=== PATIENT | male | born 1980 | race Caucasian/White ===

== ENCOUNTER 2021-12-07 03:40 | Inpatient (IN) | payer OTHER, SELFPAY ==
[2021-12-07 04:19] LABS: #Basophils 0.1 thou/uL (0.0-0.2); #Eosinphils 0.1 thou/uL (0.0-0.7); #Lymphocytes 1.3 thou/uL (1.20-3.40); #Monocytes 0.6 thou/uL (0.11-0.59); #Neutrophils 3.6 thou/uL (1.40-6.50); %Basophils 1.1 % (0.0-1.0); %Eosinophils 1.7 % (0.0-10.0); %Lymphocytes 23.1 % (21.0-51.0); %Monocytes 9.8 % (0.0-10.0); %Neutrophils 64.4 % (42.0-75.0); Hemoglobin 15.1 g/dL (14.0-18.0); Mean Corpuscular HGB CONC 35.4 g/dL (32.0-36.0); Mean Corpuscular Hemoglobin 34.8 pg (27.0-31.0); Mean Corpuscular Volume 98.4 fL (78.0-98.0); Mean Platelet Volume 6.4 fL (7.4-10.4); Platelet Count 219 thou/uL (130-400); RBC Distribution Width 11.3 % (11.5-14.5); Red Blood Cell (RBC) Count 4.33 mill/uL (4.70-6.10); White Blood Cell (WBC) Count 5.6 thou/uL (4.8-10.8)
[2021-12-07 04:29] LABS: Prothrombin Time 13.5 sec (12.0-14.7)
[2021-12-07 04:30] LABS: PTT 28.9 sec (22.9-36.1)
[2021-12-07 04:40] LABS: ALT (SGPT) 51 U/L (8-55); AST (SGOT) 38 U/L (5-34); Albumin 4.2 g/dL (3.5-5.0); Alkaline Phosphatase 52 U/L (40-110); Anion Gap 15 mmol/L (10-20); BUN (Urea Nitrogen) 11 mg/dL (8.9-20.6); Bilirubin, Total 0.7 mg/dL (0.2-1.2); CK (CPK) 90 U/L (30-200); Calc. Creatinine Clearance 0 mL/min (70-130); Carbon Dioxide 23 mmol/L (22-29); Chloride 102 mmol/L (98-107); Estimated GFR 91; Globulin 2.9 g/dL (2.4-3.5); Glucose 129 mg/dL (70-105); Potassium 3.8 mmol/L (3.5-5.1); Protein, Total 7.1 g/dL (6.0-8.3); Sodium 136 mmol/L (136-145)
[2021-12-07] MEDS ORDERED: Aspirin 325 MG TAB ONE (04:59)
[2021-12-07] MEDS ORDERED: hydrALAZINE 20 MG/ML VIAL SLOW IVP PRN ×2 (05:48→11:28)
[2021-12-07] MEDS: Nicotine 21 MG PATCH TD SCH (06:33)
[2021-12-07 06:59] LABS: Hemoglobin A1c 5.5 % (4.0-6.0)
[2021-12-07 07:04] LABS: Cardiac Risk 4.8 (Less than 4.5)
[2021-12-07] MEDS ORDERED: hydrALAZINE 20 MG/ML VIAL ONE (08:08)
[2021-12-07] MEDS ORDERED: Aspirin 81 mg Enteric Coated Tablet PO SCH (09:00)
[2021-12-07] MEDS ORDERED: niCARdipine 25 MG/10 ML VIAL ONE (09:52)
[2021-12-07 10:18] LABS: ALT (SGPT) 52 U/L (8-55); AST (SGOT) 35 U/L (5-34); Albumin 4.4 g/dL (3.5-5.0); Alkaline Phosphatase 53 U/L (40-110); Anion Gap 17 mmol/L (10-20); BUN (Urea Nitrogen) 10 mg/dL (8.9-20.6); Bilirubin, Total 0.8 mg/dL (0.2-1.2); Calc. Creatinine Clearance 0 mL/min (70-130); Calcium 9.4 mg/dL (7.8-10.44); Carbon Dioxide 24 mmol/L (22-29); Chloride 100 mmol/L (98-107); Estimated GFR 79; Globulin 3.3 g/dL (2.4-3.5); Glucose 123 mg/dL (70-105); Potassium 3.7 mmol/L (3.5-5.1); Protein, Total 7.7 g/dL (6.0-8.3); Sodium 137 mmol/L (136-145)
[2021-12-07] MEDS ORDERED: Tenecteplase 50 MG - STEMI KIT ONE (10:30)
[2021-12-07] MEDS ORDERED: niCARdipine 25 MG in Sodium Chloride 0.9% 250 ML 250 ML IVPB SCH (11:00)
[2021-12-07] MEDS ORDERED: Labetalol HCl 100 MG/20 ML VIAL SLOW IVP PRN (11:28)
[2021-12-07] MEDS ORDERED: Communication Order-Pharmacy FS ONE (11:28)
[2021-12-07] MEDS ORDERED: Ondansetron PF 4 MG/2 ML Vial IVP PRN (12:05)
[2021-12-07] MEDS ORDERED: Acetaminophen 325 MG TAB PO PRN (12:05)
[2021-12-07 12:55] VITALS: BMI 29.5
[2021-12-07] MEDS ORDERED: Iopamidol-370 76% 500 ML 1 ML ONE (13:27)
[2021-12-07 13:32] LABS: SARS-CoV-2 NAA Rapid Test Not Detected (NotDetected)
[2021-12-07] MEDS: niCARdipine 25 MG in Sodium Chloride 0.9% 250 ML 250 ML IVPB PRN ×2 (14:03→20:39)
[2021-12-07] MEDS ORDERED: Lorazepam 1 MG TAB PO PRN (14:15)
[2021-12-07] MEDS ORDERED: Electrolyte Replacement Protocol 1 EACH FS SCH (14:15)
[2021-12-07] MEDS ORDERED: Ondansetron ODT 4 MG TAB PO PRN (14:15)
[2021-12-07] MEDS ORDERED: Lorazepam (BATCHED) 2 MG/ML SYR IM PRN (15:11)
[2021-12-07] MEDS: Lorazepam 1 MG TAB PO SCH ×2 (15:25→20:37)
[2021-12-07] MEDS: Thiamine HCl 200 MG/2 ML VIAL SLOW IVP SCH (15:26)
[2021-12-07] MEDS ORDERED: Prevnar 13-Val Conj/PF 0.5 ML SYRINGE IM ONE (15:30)
[2021-12-07 17:21] LABS: Amphetamine Not Detected (NotDetected); Barbiturates Screen Not Detected (NotDetected); Benzodiazepine Screen Not Detected (NotDetected); Cocaine Metabolite Screen Not Detected (NotDetected); Methadone Not Detected (NotDetected); Methamphetamine Not Detected (NotDetected); Opiate Screen Not Detected (NotDetected); Oxycodone Screen Not Detected (NotDetected); Phencyclidine (PCP) Not Detected (NotDetected); THC/Cannabinoid Screen Not Detected (NotDetected); Tricyclic Screen Not Detected (NotDetected)
[2021-12-07] MEDS: Atorvastatin Calcium 40 MG TAB PO SCH (20:37)
[2021-12-08] MEDS: Lorazepam 1 MG TAB PO SCH ×4 (02:12→20:03)
[2021-12-08] MEDS: Nicotine 21 MG PATCH TD SCH (05:04)
[2021-12-08] MEDS: Folic Acid 1 MG TAB PO SCH (08:06)
[2021-12-08] MEDS: Multivit, Therapeutic 1 TAB PO SCH (08:06)
[2021-12-08] MEDS ORDERED: Aspirin 81 mg Enteric Coated Tablet PO SCH (11:00)
[2021-12-08] MEDS ORDERED: Losartan 25 MG TAB PO SCH (11:00)
[2021-12-08 11:15] LABS: #Basophils 0.1 thou/uL (0.0-0.2); #Eosinphils 0.1 thou/uL (0.0-0.7); #Monocytes 0.5 thou/uL (0.11-0.59); #Neutrophils 4.8 thou/uL (1.40-6.50); %Basophils 0.8 % (0.0-1.0); %Eosinophils 1.2 % (0.0-10.0); %Lymphocytes 15.7 % (21.0-51.0); %Neutrophils 74.3 % (42.0-75.0); Hemoglobin 15.6 g/dL (14.0-18.0); Mean Corpuscular HGB CONC 33.9 g/dL (32.0-36.0); Mean Corpuscular Hemoglobin 33.3 pg (27.0-31.0); Mean Corpuscular Volume 98.1 fL (78.0-98.0); Mean Platelet Volume 6.6 fL (7.4-10.4); Platelet Count 265 thou/uL (130-400); RBC Distribution Width 11.2 % (11.5-14.5); Red Blood Cell (RBC) Count 4.69 mill/uL (4.70-6.10); White Blood Cell (WBC) Count 6.4 thou/uL (4.8-10.8)
[2021-12-08 11:35] LABS: ALT (SGPT) 47 U/L (8-55); AST (SGOT) 31 U/L (5-34); Albumin 4.5 g/dL (3.5-5.0); Alkaline Phosphatase 53 U/L (40-110); Anion Gap 15 mmol/L (10-20); BUN (Urea Nitrogen) 9 mg/dL (8.9-20.6); Bilirubin, Total 1.1 mg/dL (0.2-1.2); Calc. Creatinine Clearance 129 mL/min (70-130); Calcium 9.8 mg/dL (7.8-10.44); Carbon Dioxide 24 mmol/L (22-29); Chloride 103 mmol/L (98-107); Estimated GFR 85; Globulin 3.3 g/dL (2.4-3.5); Glucose 117 mg/dL (70-105); Potassium 3.9 mmol/L (3.5-5.1); Protein, Total 7.8 g/dL (6.0-8.3); Sodium 138 mmol/L (136-145)
[2021-12-08] MEDS ORDERED: Lorazepam 1 MG TAB PO PRN (14:15)
[2021-12-08] MEDS: Thiamine HCl 200 MG/2 ML VIAL SLOW IVP SCH (16:16)
[2021-12-08] MEDS: Labetalol HCl 100 MG/20 ML VIAL SLOW IVP PRN ×2 (19:35→19:55)
[2021-12-08] MEDS: Atorvastatin Calcium 40 MG TAB PO SCH (20:03)
[2021-12-08] MEDS: niCARdipine 25 MG in Sodium Chloride 0.9% 250 ML 250 ML IVPB PRN (20:15)
[2021-12-09] MEDS: Lorazepam 1 MG TAB PO SCH ×3 (03:10→13:29)
[2021-12-09] MEDS: Nicotine 21 MG PATCH TD SCH (05:05)
[2021-12-09] MEDS: Aspirin 81 mg Enteric Coated Tablet PO SCH (08:39)
[2021-12-09] MEDS: Losartan 25 MG TAB PO SCH (08:39)
[2021-12-09] MEDS: Folic Acid 1 MG TAB PO SCH (08:39)
[2021-12-09] MEDS: Multivit, Therapeutic 1 TAB PO SCH (08:39)
[2021-12-09] MEDS: Labetalol HCl 100 MG/20 ML VIAL SLOW IVP PRN (09:23)
[2021-12-09] MEDS ORDERED: NIFEdipine XL 60 MG TAB PO SCH (10:00)
[2021-12-09] MEDS: hydrALAZINE 20 MG/ML VIAL SLOW IVP PRN (10:50)
[2021-12-09] MEDS: hydrALAZINE 25 MG TAB PO SCH ×2 (13:30→21:00)
[2021-12-09] MEDS: Lorazepam 0.5 MG TAB PO SCH ×2 (13:30→19:50)
[2021-12-09] MEDS ORDERED: Lorazepam 1 MG TAB PO PRN (14:15)
[2021-12-09] MEDS ORDERED: hydrALAZINE 25 MG TAB PO SCH (15:00)
[2021-12-09] MEDS: Thiamine HCl 200 MG/2 ML VIAL SLOW IVP SCH (15:47)
[2021-12-09] MEDS: Acetaminophen 325 MG TAB PO PRN (19:50)
[2021-12-09] MEDS: Atorvastatin Calcium 40 MG TAB PO SCH (21:01)
[2021-12-10] MEDS ORDERED: Melatonin 3 MG TAB PO PRN (00:44)
[2021-12-10] MEDS: Lorazepam 0.5 MG TAB PO SCH ×3 (03:04→13:17)
[2021-12-10] MEDS: Nicotine 21 MG PATCH TD SCH (05:53)
[2021-12-10] MEDS ORDERED: NIFEdipine XL 60 MG TAB PO SCH (09:00)
[2021-12-10] MEDS: Folic Acid 1 MG TAB PO SCH (09:18)
[2021-12-10] MEDS: Thiamine 100 MG TAB PO SCH (09:18)
[2021-12-10] MEDS: NIFEdipine XL 90 MG TAB PO SCH (09:19)
[2021-12-10] MEDS: Multivit, Therapeutic 1 TAB PO SCH (09:19)
[2021-12-10] MEDS: Losartan 25 MG TAB PO SCH (09:19)
[2021-12-10] MEDS: hydrALAZINE 25 MG TAB PO SCH ×3 (09:19→20:52)
[2021-12-10] MEDS: Aspirin 81 mg Enteric Coated Tablet PO SCH (09:19)
[2021-12-10] MEDS ORDERED: Losartan 25 MG TAB PO SCH (11:45)
[2021-12-10] MEDS ORDERED: Lorazepam 0.5 MG TAB PO PRN (14:15)
[2021-12-10] MEDS: Labetalol HCl 100 MG/20 ML VIAL SLOW IVP PRN ×2 (16:21→22:47)
[2021-12-10] MEDS: hydrALAZINE 20 MG/ML VIAL SLOW IVP PRN (20:47)
[2021-12-10] MEDS: Atorvastatin Calcium 40 MG TAB PO SCH (20:52)
[2021-12-10] MEDS: Acetaminophen 325 MG TAB PO PRN (20:53)
[2021-12-10] MEDS ORDERED: tiZANidine HCl 4 MG TAB PO SCH (22:45)
[2021-12-11 04:16] VITALS: TEMP 98.5
[2021-12-11] MEDS ORDERED: Labetalol HCl 100 MG/20 ML VIAL SLOW IVP PRN (06:53)
[2021-12-11 07:57] LABS: Anion Gap 12 mmol/L (10-20); BUN (Urea Nitrogen) 12 mg/dL (8.9-20.6); Calc. Creatinine Clearance 120 mL/min (70-130); Calcium 9.3 mg/dL (7.8-10.44); Carbon Dioxide 25 mmol/L (22-29); Chloride 104 mmol/L (98-107); Estimated GFR 78; Glucose 109 mg/dL (70-105); Potassium 3.6 mmol/L (3.5-5.1); Sodium 137 mmol/L (136-145)
[2021-12-11] MEDS ORDERED: Nicotine 21 MG PATCH TD SCH (09:00)
[2021-12-11] MEDS ORDERED: Losartan 25 MG TAB PO SCH (09:00)
[2021-12-11] MEDS: Hydrochlorothiazide 25 MG TAB PO SCH ×2 (10:27→10:29)
[2021-12-11] MEDS: Thiamine 100 MG TAB PO SCH ×2 (10:28→10:29)
[2021-12-11] MEDS: Multivit, Therapeutic 1 TAB PO SCH (10:29)
[2021-12-11] MEDS: Aspirin 81 mg Enteric Coated Tablet PO SCH (10:30)
[2021-12-11] MEDS: hydrALAZINE 25 MG TAB PO SCH ×3 (10:30→20:00)
[2021-12-11] MEDS: Folic Acid 1 MG TAB PO SCH (10:30)
[2021-12-11] MEDS: NIFEdipine XL 90 MG TAB PO SCH (10:31)
[2021-12-11 20:01] VITALS: BP 143/104
[2021-12-11] MEDS: Atorvastatin Calcium 40 MG TAB PO SCH (20:01)
== END 2021-12-11 21:30 | DRG 62 ==
LOC: ERS 03:40 → ERHOLD 05:21 → CCU 11:58 → NEURO 12-09 15:24
PROVIDERS: ADMIT Family Medicine; ATTEND Student in an Organized Health Care Education/Training Program
PROC: 3E03317 Introduction of Other Thrombolytic into Peripheral Vein, Percutaneous Approach (ICD-10-PCS; principal; 2021-12-07)
PROC: HZ2ZZZZ Detoxification Services for Substance Abuse Treatment (ICD-10-PCS; 2021-12-08)
DX: I63.9 Cerebral infarction, unspecified (principal); G81.91 Hemiplegia, unspecified affecting right dominant side; F10.139 Alcohol abuse with withdrawal, unspecified; Z20.822 Contact with and (suspected) exposure to COVID-19; R29.706 NIHSS score 6; R29.810 Facial weakness; R47.81 Slurred speech; F17.290 Nicotine dependence, other tobacco product, uncomplicated; E78.5 Hyperlipidemia, unspecified; R47.1 Dysarthria and anarthria; I51.7 Cardiomegaly; F43.9 Reaction to severe stress, unspecified; Z28.21 Immunization not carried out because of patient refusal; Z82.3 Family history of stroke; Z82.49 Family history of ischemic heart disease and other diseases of the circulatory system
CPT/HCPCS: 36415; 36416; 70450; 70496; 70498; 70551; 80048; 80053; 80061; 80306; 80307; 82550; 83036; 84443; 85025; 93005; 93306; 93880; 96374; 96375; J0360; J3101; J3411; J7050; Q9967; U0002